=== PATIENT | male | born 2000 | race Caucasian/White ===

== ENCOUNTER 2022-03-07 17:50 | Emergency (ER) | payer OTHER ==
[~2022-03-07] VITALS: Ht 185.4 cm; Wt 102.3 kg
[2022-03-07 18:09] VITALS: BP 125/54
== END 2022-03-07 19:02 | disposition left against medical advice (07) ==
LOC: EMS 17:50
DX: L08.9 Local infection of the skin and subcutaneous tissue, unspecified (principal); Z53.21 Procedure and treatment not carried out due to patient leaving prior to being seen by health care provider